=== PATIENT | female | born 1990 | race African-American/Black ===

== ENCOUNTER 2019-07-30 18:17 | Emergency (ER) | payer OTHER, SELFPAY ==
--- NOTE | 2019-07-30 19:43 | RAD ---
TWO VIEW CHEST: History: Fever, cough. FINDINGS: Lung de guzman are clear. No infiltrate. Heart and mediastinum appear normal. IMPRESSION: Negative chest. POS: [facility]
== END 2019-07-30 20:34 | disposition home or self-care (01) ==
LOC: ERS 18:17
DX: J11.1 Influenza due to unidentified influenza virus with other respiratory manifestations (principal)
CPT/HCPCS: 71046

== ENCOUNTER 2019-09-07 13:02 | Emergency (ER) | payer OTHER ==
--- NOTE | 2019-09-07 13:54 | RAD ---
PA AND LATERAL VIEWS CHEST: HISTORY: Cough. FINDINGS: Comparison is made with the exam of 07/30/2019. The cardiomediastinum is normal. The lungs are expanded and clear. The bony thorax is normal. IMPRESSION: Normal exam. POS: [facility]
[2019-09-07] MEDS ORDERED: Ondansetron ODT 4 MG TAB ONE (14:34)
[2019-09-07] MEDS ORDERED: Acetaminophen 500 MG TAB ONE (14:34)
[2019-09-07] MEDS ORDERED: Ibuprofen 800 MG TAB ONE (14:34)
== END 2019-09-07 15:30 | disposition home or self-care (01) ==
LOC: ERS 13:02
DX: B34.9 Viral infection, unspecified (principal); J45.909 Unspecified asthma, uncomplicated
CPT/HCPCS: 71046; 87081; 87430; 87804; Q0162